=== PATIENT | female | born 1995 | race Caucasian/White ===

== ENCOUNTER 2022-06-06 11:16 | Emergency (ER) | payer SELFPAY ==
[2022-06-06] MEDS ORDERED: Prochlorperazine 10 MG/2 ML VIAL ONE (12:11)
[2022-06-06] MEDS ORDERED: Ketorolac Tromethamine 30 MG/ML VIAL ONE (12:12)
[2022-06-06] MEDS ORDERED: diphenhydrAMINE 50 MG/ML VIAL ONE (12:12)
== END 2022-06-06 13:40 | disposition home or self-care (01) ==
LOC: CSHERS 11:16
DX: S06.0X0A Concussion without loss of consciousness, initial encounter (principal); W22.8XXA Striking against or struck by other objects, initial encounter
CPT/HCPCS: 70450; 96374; 96375; J0780; J1200; J1885